=== PATIENT | male | born 1980 | race Caucasian/White ===

== ENCOUNTER 2016-12-31 05:52 | Emergency (ER) | payer SELFPAY ==
[2016-12-31 05:56] VITALS: BMI 27.8
[2016-12-31 06:01] VITALS: TEMP 98.6
--- NOTE | 2016-12-31 06:19 | ED PDOC ---
Arrival/HPI - General Chief Complaint: Abdominal Pain Time Seen by Provider: 12/31/16 05:53 - History of Present Illness Narrative History of Present Illness (Text): 12/31/16 06:17 36 yo male, no prior hx, presents with abdominal pain. as per pt, started 2 days ago. pt describes pain worse to his llq, at times going to his back, described as intermittant sharp pain. pt states pain is not associated with fevers, n/v/d, urinary changes. pt states "he became flushed today", which concerned him. 12/31/16 06:30 Past Medical History - Provider Review Nursing Documentation Reviewed: Yes - Cardiac Hx Cardiac Disorders: No - Pulmonary Hx Respiratory Disorders: No - Neurological Hx Neurological Disorder: No - HEENT Hx HEENT Disorder: No - Renal Hx Renal Disorder: No - Endocrine/Metabolic Hx Endocrine Disorders: No - Hematological/Oncological Hx Blood Disorders: No - Integumentary Hx Dermatological Disorder: No - Musculoskeletal/Rheumatological Hx Musculoskeletal Disorders: No - Gastrointestinal Hx Gastrointestinal Disorders: No - Genitourinary/Gynecological Hx Genitourinary Disorders: No - Psychiatric Hx Psychophysiologic Disorder: No Hx Substance Use: No - Anesthesia Hx Anesthesia: No Family/Social History - Physician Review Nursing Documentation Reviewed: Yes Family/Social History: Unknown Family HX Smoking Status: Former Smoker Hx Alcohol Use: Yes Frequency of alcohol use: Socially Hx Substance Use: No Allergies/Home Meds Allergies/Adverse Reactions: Allergies No Known Allergies Allergy (Verified 12/31/16 05:56) Home Medications: Home Meds Medication Instructions Recorded Confirmed No Known Home Med 12/31/16 12/31/16 Review of Systems - Review of Systems Constitutional: Normal Eyes: Normal ENT: Normal Respiratory: Normal Cardiovascular: Normal Gastrointestinal: Abdominal Pain Genitourinary Male: Normal Musculoskeletal: Normal Skin: Normal Neurological: Normal Endocrine: Normal Hemo/Lymphatic: Normal Psychiatric: Normal Physical Exam Vital Signs Temp Pulse Resp BP Pulse Ox 12/31/16 09:26 67 16 134/82 97 12/31/16 07:15 68 16 142/74 100 12/31/16 07:00 65 16 142/74 100 12/31/16 06:00 98.6 F 80 14 146/90 98 Temperature: Afebrile Blood Pressure: Normal Pulse: Regular Respiratory Rate: Normal Appearance: Positive for: Well-Appearing, Non-Toxic, Comfortable Pain Distress: None Mental Status: Positive for: Alert and Oriented X 3 - Systems Exam Head: Present: Atraumatic, Normocephalic Pupils: Present: PERRL Extroacular Muscles: Present: EOMI Conjunctiva: Present: Normal Mouth: Present: Moist Mucous Membranes Neck: Present: Normal Range of Motion Respiratory/Chest: Present: Clear to Auscultation, Good Air Exchange. No: Respiratory Distress, Accessory Muscle Use Cardiovascular: Present: Regular Rate and Rhythm, Normal S1, S2. No: Murmurs Abdomen: Present: Tenderness (llq), Normal Bowel Sounds. No: Distention, Peritoneal Signs, Rebound, Guarding Back: Present: Normal Inspection Upper Extremity: Present: Normal Inspection. No: Cyanosis, Edema Lower Extremity: Present: Normal Inspection. No: Edema Neurological: Present: GCS=15, CN II-XII Intact, Speech Normal Skin: Present: Warm, Dry, Normal Color. No: Rashes Psychiatric: Present: Alert, Oriented x 3, Normal Insight, Normal Concentration Medical Decision Making ED Course and Treatment: 12/31/16 06:19 llq pain - r/o diverticulitis vs renal colic - labs imaging pain control, reassess. 12/31/16 06:31 pt refuses toradol, ivf, states pain is mild. 12/31/16 06:52 pt endorsed to day shift, pending labs, ct, reassessment, and final dispo. - Lab Interpretations Lab Results: 12/31/16 06:05 12/31/16 06:05 Lab Results 12/31/16 06:05: WBC 4.7, RBC 5.21, Hgb 13.6 L, Hct 41.7 L, MCV 80.0, MCH 26.1, MCHC 32.6, RDW 13.5, Plt Count 108 L, MPV 12.1 H, Gran % 48.0 L, Lymph % (Auto) 41.0 H, [place] % (Auto) 8.7 H, Eos % (Auto) 1.7, Baso % (Auto) 0.6, Gran # 2.27, Lymph # 1.9, [place] # 0.4, Eos # 0.1, Baso # 0.03, PT 10.5, INR 0.97, APTT 22.7 L , Sodium 140, Potassium 3.8, Chloride 101, Carbon Dioxide 29, Anion Gap 14, BUN 16, Creatinine 1.0, Est GFR ( Amer) > 60, Est GFR (Non-Af Amer) > 60, Random Glucose 94, Calcium 9.6, Total Bilirubin 0.6, AST 100 H, ALT 151 H, Alkaline Phosphatase 67, Total Protein 8.2, Albumin 4.7, Globulin 3.5, Albumin/ Globulin Ratio 1.3, Lipase 74, Urine Color Yellow, Urine Appearance Clear, Urine pH 6.0, Ur Specific [place] 1.025, Urine Protein Negative, Urine Glucose ( UA) Negative, Urine Ketones Negative, Urine Blood Trace-lysed H, Urine Nitrate Negative, Urine Bilirubin Negative, Urine Urobilinogen 0.2, Ur Leukocyte Esterase Negative, Urine RBC 0 - 2, Urine WBC Negative, Ur Epithelial Cells 0 - 2, Urine Bacteria Trace - RAD Interpretation Radiology Orders: 12/31/16 06:12 ABD & PELVIS IV CONTRAST ONLY [CT] Stat - Medication Orders Current Medication Orders: Discontinued Medications Sodium Chloride (Sodium Chloride 0.9%) 1,000 mls @ 1,000 mls/hr IV .Q1H STA Stop: 12/31/16 07:11 Last Admin: 12/31/16 06:28 Dose: Iohexol (Omnipaque 350 100 Ml) Confirm Administered Dose 350 mg .ROUTE .STK-MED ONE Stop: 12/31/16 06:41 Ketorolac Tromethamine (Toradol) 30 mg IVP STAT STA Stop: 12/31/16 06:13 Last Admin: 12/31/16 06:27 Dose: Disposition/Present on Arrival - Present on Arrival Any Indicators Present on Arrival: No History of DVT/PE: No History of Uncontrolled Diabetes: No Urinary Catheter: No History of Decub. Ulcer: No History Surgical Site Infection Following: None - Disposition Have Diagnosis and Disposition been Completed?: Yes Diagnosis: Abdominal pain Disposition: HOME/ ROUTINE Disposition Time: 07:00 Condition: IMPROVED Discharge Instructions (ExitCare): Acute Abdominal Pain (ED) Additional Instructions: Mr Mandel thank you for letting us take care of you today. Your provider was Dr. Dominguez. You were treated for Abdominal Pain, Hot Flashing Feeling. The emergency medical care you received today was directed at your acute symptoms. If you were prescribed any medication, please fill it and take as directed. It may take several days for your symptoms to resolve. Return to the Emergency Department if your symptoms worsen, do not improve, or if you have any other problems. Please contact your doctor or call one of the physicians/clinics you have been referred to that are listed on the Patient Visit Information form that is included in your discharge packet. Bring any paperwork you were given at discharge with you along with any medications you are taking to your follow up visit. Our treatment cannot replace ongoing medical care by a primary care provider (PCP) outside of the emergency department. Thank you for allowing the [facility] team to be part of your care today. If you had an X-Ray or CT scan: A Radiologist will review the ED reading if any change in treatment is needed we will contact you. If you had a blood, urine, or wound culture: It will take several days for the results, if any change in treatment is needed we will contact you. If you had an STI test: It will take 48 hours for the results. Please call after 1 week if you have not heard back. Referrals: [facility] Maycol Mcbride, [Non-Staff] - Follow up with primary Forms: WORK NOTE
[2016-12-31] MEDS: Sodium Chloride 0.9% 1,000 ML IV STA ×2 (06:23→06:28)
[2016-12-31] MEDS ORDERED: Iohexol 350 MG/100 ML VIAL ONE (06:40)
[2016-12-31 06:43] LABS: ADD MANUAL DIFF? NO
[2016-12-31 06:55] LABS: BASO # 0.03 K/mm3 (0.0-2.0); BASO % 0.6 % (0.0-3.0); EOS # 0.1 (0.0-0.7); EOS % 1.7 % (1.5-5.0); GRAN # 2.27 (1.4-6.5); HEMATOCRIT 41.7 % (42.0-52.0); LYMPH # 1.9 (1.2-3.4); MEAN CORPUSCULAR HEMOGLOBIN 26.1 pg (25.0-35.0); MEAN CORPUSCULAR HGB CONC 32.6 g/dl (31.0-37.0); MEAN PLATELET VOLUME 12.1 fl (7.0-11.0); MONO # 0.4 (0.1-0.6); MONO % 8.7 % (1.0-6.0); PLATELET COUNT 108 10^3/uL (120.0-450.0); RED CELL DISTRIBUTION WIDTH 13.5 % (11.5-14.5); WHITE BLOOD COUNT 4.7 10^3/ul (4.5-11.0)
[2016-12-31 07:01] VITALS: RESP 16
[2016-12-31 07:03] LABS: INR 0.97 (0.93-1.08); PARTIAL THROMBOPLASTIN TIME 22.7 Seconds (23.7-30.8)
[2016-12-31 07:06] LABS: ALB/GLOB RATIO 1.3 (1.1-1.8); ALKALINE PHOSPHATASE 67 U/L (38-133); ALT/SGPT 151 U/L (7-56); AST/SGOT 100 U/L (15-59); BILIRUBIN,TOTAL 0.6 mg/dL (0.2-1.3); BLOOD UREA NITROGEN 16 mg/dL (7-21); CALCIUM 9.6 mg/dL (8.4-10.5); CARBON DIOXIDE 29 mmol/L (21-33); CHLORIDE 101 mmol/L (98-107); GFR AFRICAN-AMERICAN > 60; GLUCOSE,RANDOM 94 mg/dL (70-110); LIPASE 74 U/L (23-300); POTASSIUM 3.8 mmol/L (3.6-5.0); SODIUM 140 mmol/L (132-148); TOTAL PROTEIN 8.2 g/dL (5.8-8.3)
[2016-12-31 07:10] LABS: URINE BILIRUBIN NEGATIVE (NEGATIVE); URINE BLOOD TRACE-LYSED (NEGATIVE); URINE GLUCOSE (UA) NEGATIVE (NEGATIVE); URINE KETONE NEGATIVE (NEGATIVE); URINE LEUKOCYTE ESTERASE NEGATIVE Leu/uL (NEGATIVE); URINE PROTEIN NEGATIVE mg/dL (<30 mg/dL); URINE UROBILINOGEN 0.2 E.U./dL (<1 E.U./dL)
[2016-12-31 07:12] LABS: URINE COLOR YELLOW (YELLOW)
[2016-12-31 07:13] LABS: URINE APPEARANCE CLEAR (CLEAR)
--- NOTE | 2016-12-31 07:18 | ED PDOC ---
Physical Exam Vital Signs Temp Pulse Resp BP Pulse Ox 12/31/16 07:15 68 16 142/74 100 12/31/16 07:00 65 16 142/74 100 12/31/16 06:00 98.6 F 80 14 146/90 98 Medical Decision Making ED Course and Treatment: 12/31/16 07:00 Patient signed out to me by Dr. Chaudhry. Pending labs and CT results. 12/31/16 09:19 Procedure: CT scan of the abdomen and pelvis dated 12/31/2016. Dictator: Raj Souza MD Impression: Findings consistent with mild constipation. No acute intra abdominal pathology so far as can be seen. Small left adrenal nodule. This could represent adenoma however followup at interval recommended to assess stability. The there minor degenerate 12/31/16 09:24 On re-evaluation, the patient feels better and is in no acute distress. Abdominal pain is not present and abdomen is soft, non-tender. I have discussed the results and plan with the patient, who expresses understanding. A copy of the CT results were given to the patient. Patient states he is not constipated, since his last bowel movement was yesterday and that he does not suffer from constipation regularly. Adrenal nodule finding on CT scan was also discussed with patient and was told to follow up with his PMD. In regards to patient's ' hot flashes' patient was advised to follow up with his PMD to have his thyroid checked, Patient in agreement with plan to discharged home. Patient is stable for discharge. Patient was also instructed to return if symptoms worsen or new concerning symptoms arise. - Lab Interpretations Lab Results: 12/31/16 06:05 12/31/16 06:05 Lab Results 12/31/16 06:05: WBC 4.7, RBC 5.21, Hgb 13.6 L, Hct 41.7 L, MCV 80.0, MCH 26.1, MCHC 32.6, RDW 13.5, Plt Count 108 L, MPV 12.1 H, Gran % 48.0 L, Lymph % (Auto) 41.0 H, [place] % (Auto) 8.7 H, Eos % (Auto) 1.7, Baso % (Auto) 0.6, Gran # 2.27, Lymph # 1.9, [place] # 0.4, Eos # 0.1, Baso # 0.03, PT 10.5, INR 0.97, APTT 22.7 L , Sodium 140, Potassium 3.8, Chloride 101, Carbon Dioxide 29, Anion Gap 14, BUN 16, Creatinine 1.0, Est GFR ( Amer) > 60, Est GFR (Non-Af Amer) > 60, Random Glucose 94, Calcium 9.6, Total Bilirubin 0.6, AST 100 H, ALT 151 H, Alkaline Phosphatase 67, Total Protein 8.2, Albumin 4.7, Globulin 3.5, Albumin/ Globulin Ratio 1.3, Lipase 74, Urine Color Yellow, Urine Appearance Clear, Urine pH 6.0, Ur Specific [place] 1.025, Urine Protein Negative, Urine Glucose ( UA) Negative, Urine Ketones Negative, Urine Blood Trace-lysed H, Urine Nitrate Negative, Urine Bilirubin Negative, Urine Urobilinogen 0.2, Ur Leukocyte Esterase Negative, Urine RBC 0 - 2, Urine WBC Negative, Ur Epithelial Cells 0 - 2, Urine Bacteria Trace - RAD Interpretation Narrative RAD Interpretations (Text): 12/31/16 09:19 Procedure: CT scan of the abdomen and pelvis dated 12/31/2016. Dictator: Raj Souza MD FINDINGS: LOWER THORAX: Lung bases are clear. Small hiatal hernia. Heart size is upper limits of normal. LIVER: The liver exhibits normal size measuring approximately 16.3 cm in CC dimension. No obvious hepatic mass or collection. Portal and splenic veins are opacified. GALLBLADDER AND BILE DUCTS: Gallbladder is physiologically distended. No evidence intraluminal gallbladder calculi. PANCREAS: The pancreas appears unremarkable without mass collection or calcification. . SPLEEN: The small splenule seen anterior to the main body of the spleen. . ADRENALS: There appears to be a small approximately 10.6 mm left adrenal nodule. This could represent small adenoma however followup bulla CT scan at interval could be performed to assess stability. KIDNEYS AND URETERS: Unremarkable. No stone or hydronephrosis. BLADDER: Urinary bladder is incompletely distended which may account for slight thick- walled appearance. Muscular hypertrophy may contribute. Possibility of a cystitis not excluded. . REPRODUCTIVE: Prostate gland and seminal vesicles unremarkable. APPENDIX: Normal-appearing appendix of best seen on axial image number [id number]. BOWEL: Stomach is incompletely distended which presumably accounts for slight thick- walled appearance. Gastritis not excluded. Evaluation of the bowel is limited due to the lack of oral contrast material. Visualized loops of small bowel exhibit normal contour and caliber. No evidence of acute mechanical small bowel obstruction. Moderately large amount of stool seen throughout the entire colon consistent with mild constipation. PERITONEUM: Unremarkable. No fluid collection. No free air. There is small fat containing umbilical hernia. LYMPH NODES: Unremarkable. No enlarged lymph nodes. VASCULATURE: Unremarkable. No aortic aneurysm. BONES: Mild multilevel degenerative spondylosis of the lower thoracic and lumbar spine. OTHER FINDINGS: None. Impression: Findings consistent with mild constipation. No acute intra abdominal pathology so far as can be seen. Small left adrenal nodule. This could represent adenoma however followup at interval recommended to assess stability. The there minor degenerate Radiology Orders: 12/31/16 06:12 ABD & PELVIS IV CONTRAST ONLY [CT] Stat - Medication Orders Current Medication Orders: Discontinued Medications Sodium Chloride (Sodium Chloride 0.9%) 1,000 mls @ 1,000 mls/hr IV .Q1H STA Stop: 12/31/16 07:11 Last Admin: 12/31/16 06:28 Dose: Iohexol (Omnipaque 350 100 Ml) Confirm Administered Dose 350 mg .ROUTE .STK-MED ONE Stop: 12/31/16 06:41 Ketorolac Tromethamine (Toradol) 30 mg IVP STAT STA Stop: 12/31/16 06:13 Last Admin: 12/31/16 06:27 Dose: - Scribe Statement The provider has reviewed the documentation as recorded by the Zack Mena Provider Attestation: All medical record entries made by the Zack were at my direction and personally dictated by me. I have reviewed the chart and agree that the record accurately reflects my personal performance of the history, physical exam, medical decision making, and the department course for this patient. I have also personally directed, reviewed, and agree with the discharge instructions and disposition. Disposition/Present on Arrival - Present on Arrival Any Indicators Present on Arrival: No History of DVT/PE: No History of Uncontrolled Diabetes: No Urinary Catheter: No History of Decub. Ulcer: No History Surgical Site Infection Following: None - Disposition Have Diagnosis and Disposition been Completed?: Yes Diagnosis: Abdominal pain Disposition: HOME/ ROUTINE Disposition Time: 09:24 Patient Plan: Discharge Condition: IMPROVED Discharge Instructions (ExitCare): Acute Abdominal Pain (ED) Additional Instructions: Mr Mandel thank you for letting us take care of you today. Your provider was Dr. Dominguez. You were treated for Abdominal Pain, Hot Flashing Feeling. The emergency medical care you received today was directed at your acute symptoms. If you were prescribed any medication, please fill it and take as directed. It may take several days for your symptoms to resolve. Return to the Emergency Department if your symptoms worsen, do not improve, or if you have any other problems. Please contact your doctor or call one of the physicians/clinics you have been referred to that are listed on the Patient Visit Information form that is included in your discharge packet. Bring any paperwork you were given at discharge with you along with any medications you are taking to your follow up visit. Our treatment cannot replace ongoing medical care by a primary care provider (PCP) outside of the emergency department. Thank you for allowing the [facility] team to be part of your care today. If you had an X-Ray or CT scan: A Radiologist will review the ED reading if any change in treatment is needed we will contact you. If you had a blood, urine, or wound culture: It will take several days for the results, if any change in treatment is needed we will contact you. If you had an STI test: It will take 48 hours for the results. Please call after 1 week if you have not heard back. Referrals: [facility] Maycol Mcbride, [Non-Staff] - Follow up with primary Forms: WORK NOTE
[2016-12-31 07:30] LABS: URINE RBC 0 - 2 /hpf (0-2); URINE WBC NEGATIVE /hpf (0-6)
[2016-12-31 07:31] LABS: URINE BACTERIA TRACE (NEG); URINE EPITHELIAL CELLS 0 - 2 /hpf (0-5)
--- NOTE | 2016-12-31 09:15 | CT ---
PROCEDURE: CT scan of the abdomen and pelvis dated 12/31/2016. HISTORY: llq pain COMPARISON: None. TECHNIQUE: Contiguous axial images of the abdomen and p pelvis performed in standard fashion final in the intravenous injection of approximately 90 cc of Omnipaque 350 contrast material. . Coronal and Sagittal reformats generated. Radiation dose: Total exam DLP = 543.87 mGy-cm. This CT exam was performed using one or more of the following dose reduction techniques: Automated exposure control, adjustment of the mA and/or kV according to patient size, and/or use of iterative reconstruction technique. FINDINGS: LOWER THORAX: Lung bases are clear. Small hiatal hernia. Heart size is upper limits of normal. LIVER: The liver exhibits normal size measuring approximately 16.3 cm in CC dimension. No obvious hepatic mass or collection. Portal and splenic veins are opacified. GALLBLADDER AND BILE DUCTS: Gallbladder is physiologically distended. No evidence intraluminal gallbladder calculi. PANCREAS: The pancreas appears unremarkable without mass collection or calcification. . SPLEEN: The small splenule seen anterior to the main body of the spleen. . ADRENALS: There appears to be a small approximately 10.6 mm left adrenal nodule. This could represent small adenoma however followup bulla CT scan at interval could be performed to assess stability. KIDNEYS AND URETERS: Unremarkable. No stone or hydronephrosis. BLADDER: Urinary bladder is incompletely distended which may account for slight thick-walled appearance. Muscular hypertrophy may contribute. Possibility of a cystitis not excluded. . REPRODUCTIVE: Prostate gland and seminal vesicles unremarkable. APPENDIX: Normal-appearing appendix of best seen on axial image number [id number]. BOWEL: Stomach is incompletely distended which presumably accounts for slight thick-walled appearance. Gastritis not excluded. Evaluation of the bowel is limited due to the lack of oral contrast material. Visualized loops of small bowel exhibit normal contour and caliber. No evidence of acute mechanical small bowel obstruction. Moderately large amount of stool seen throughout the entire colon consistent with mild constipation. PERITONEUM: Unremarkable. No fluid collection. No free air. There is small fat containing umbilical hernia. LYMPH NODES: Unremarkable. No enlarged lymph nodes. VASCULATURE: Unremarkable. No aortic aneurysm. BONES: Mild multilevel degenerative spondylosis of the lower thoracic and lumbar spine. OTHER FINDINGS: None. IMPRESSION: Findings consistent with mild constipation. No acute intra abdominal pathology so far as can be seen. Small left adrenal nodule. This could represent adenoma however followup at interval recommended to assess stability. The there minor degenerate
[2016-12-31 09:27] VITALS: BP 134/82; PULSE 67; O2SAT 97
== END 2016-12-31 09:33 | disposition home or self-care (01) ==
LOC: ED 05:52
DX: R10.9 Unspecified abdominal pain (principal)
CPT/HCPCS: 74177; 80053; 81001; 83690; 85025; 85610; 85730; 99285; Q9967